=== PATIENT | male | born 1935 | race Caucasian/White ===

== ENCOUNTER 2024-01-25 22:25 | Emergency (ER) | payer OTHER, SELFPAY ==
[2024-01-25 22:35] VITALS: BP 138/75; PULSE 78; RESP 16; TEMP 36.9; O2SAT 97; BMI 21.1
--- NOTE | 2024-01-26 00:10 | ED_ITS ---
HPI - Recheck/Abnormal Lab/Rx General Chief Complaint: Recheck/Abnormal Lab/Rx Stated Complaint: parkinsons patient out of medication Time Seen by Provider: 01/25/24 23:45 Source: patient and family Mode of arrival: Family Vehicle History of Present Illness HPI narrative: Patient with severe Parkinson's disease presents requesting a refill of Parkinson's medications. Patient's states that they live in [place], but have a home on [facility]. Patient's realized as they came to the [place] that they left the patient's large bottle of Sinemet at home. They were able to get their primary doctor to refill a prescription to [facility], however the pharmacy does not have a pharmacist staffing the only pharmacy on the [place] and so they were unable to fill the prescription. Patient and his are here today to see if they can get enough Sinemet to last them until [facility] opens during business hours on Saturday. Patient takes 20 tablets of 25 -100 mg levodopa carbidopa daily Related Data Home Medications Medication Instructions Recorded Confirmed carbidopa 25 mg-levodopa 100 mg tab PO DIRECTED 01/25/24 tablet Previous Rx's Medication Instructions Recorded carbidopa 25 mg-levodopa 100 mg 2 tab PO QID #40 tabs 01/26/24 tablet Allergies Allergy/AdvReac Type Severity Reaction Status Date / Time paroxetine [From Paxil] AdvReac Intermediate Chills Verified 01/25/24 22:49 Review of Systems Review of Systems Narrative: See HPI Exam Initial Vital Signs Initial Vital Signs: Vital Signs Temperature 98.5 F 01/25/24 22:35 Pulse Rate 78 01/25/24 22:35 Respiratory Rate 16 01/25/24 22:35 Blood Pressure 138/75 01/25/24 22:35 Pulse Oximetry 97 01/25/24 22:35 Oxygen Delivery Method Room Air 01/25/24 22:35 Const: Awake, alert, frail, no distress Skin: Warm, Dry, intact, no rashes Neuro: AO x3, CN II-XII grossly intact, moves all extremities Course Orders Ordered: Discontinued Medications Carbidopa/Levodopa (Carbidopa-Levodopa 25/100 Tablet) 6 each PO NOW ONE Stop: 01/26/24 00:09 Last Admin: 01/26/24 00:24 Dose: 6 each Documented By: GC Vital Signs Vital signs: Vital Signs - 8 hr 01/25/24 22:35 Temperature 98.5 F Pulse Rate 78 Respiratory Rate 16 Blood Pressure 138/75 Pulse Oximetry 97 Oxygen Delivery Method Room Air MDM - Recheck/Abnormal Lab/Rx MDM Narrative Medical decision making narrative: Here for refill of Sinemet. states that she has enough to get the patient until 6:00 a.m., but then afterwards they will have no Sinemet until they can g et the prescription filled on Saturday at [facility]. Patient given several tablets here in the emergency department in order to bridge from when the patient leaves the hospital until when the pharmacies in [place] open. Short script of patient's normal dose of Sinemet sent to pharmacy of choice Discharge Plan Departure Patient Disposition: Home Clinical Impression: Encounter for medication refill Activity Restrictions/Additional Instructions: I sent 40 tablets of Sinemet to the [facility] in [place]. Please pick this up tomorrow to hold you over until you can excels[facility] picker the remainder of your prescription at [facility]. The [facility] pharmacy opens at 10am on Saturday. Prescriptions: New carbidopa-levodopa 25-100 mg tablet 2 tab PO QID Qty: 40 0RF No Action carbidopa-levodopa 25-100 mg tablet PO DIRECTED Rx Instructions: Takes every three hours. Referrals: Miscellaneous,Doctor, MD [Primary Care Provider] - Stand Alone Forms: Patient Portal/API
[2024-01-26] MEDS: CARBIDOPA-LEVODOPA 25/100 TABLET 6 EACH PO (00:24)
[2024-01-26 00:37] VITALS: BP 130/74; PULSE 68; RESP 16; TEMP 36.5; O2SAT 99
== END 2024-01-26 00:39 | disposition home or self-care (01) ==
PROVIDERS: Emergency Provider Emergency Medicine
DX: Z76.0 Encounter for issue of repeat prescription (principal); G20.A1 Parkinson's disease without dyskinesia, without mention of fluctuations
CPT/HCPCS: 99283